=== PATIENT | male | born 1965 | race Caucasian/White ===

== ENCOUNTER 2018-04-25 07:35 | Day surgery (SDC) | payer OTHER ==
[~2018-04-25] VITALS: Ht 182.9 cm; Wt 72.8 kg
[2018-04-25] MEDS ORDERED: LOSA50TA7 PO (08:03)
[2018-04-25 08:32] LABS: BASOPHILS # (AUTO) 0.05 x10^3/uL (0-0.1); BASOPHILS % (AUTO) 0 % (0-1); EOSINOPHILS # (AUTO) 0.04 x10^3/uL (0-0.4); EOSINOPHILS % (AUTO) 0 % (1-7); LYMPHOCYTES % (AUTO) 11 % (22-44); MD NO; MEAN CORPUSCULAR HEMOGLOBIN 30.5 pg (27.5-34.5); MEAN CORPUSCULAR VOLUME 92.4 fL (81-97); MEAN PLATELET VOLUME 7.4 fL (7.4-10.4); MONOCYTES # (AUTO) 0.67 x10^3/uL (0.2-0.8); MONOCYTES % (AUTO) 5 % (2-9); NEUTROPHILS # (AUTO) 10.33 x10^3/uL (1.8-6.8); NEUTROPHILS % (AUTO) 83 % (42-75); PLATELET COUNT 363 x10^3/uL (130-400); RED BLOOD COUNT 5.59 x10^6/uL (4.38-5.82); RED CELL DISTRIBUTION WIDTH 13.6 % (9.4-14.8)
[2018-04-25 08:42] LABS: ALANINE AMINOTRANSFERASE 43 U/L (12-78); ALBUMIN 4.3 g/dL (3.4-5.0); ANION GAP 9 mmol/L (5-15); CALCIUM 9.7 mg/dL (8.5-10.1); CHLORIDE 98 mmol/L (98-107); CREATININE 1.18 mg/dL (0.7-1.3)
[2018-04-25 08:44] LABS: ALKALINE PHOSPHATASE 96 U/L (45-117); BILIRUBIN,TOTAL 2.2 mg/dL (0.2-1.0); TOTAL PROTEIN 9.6 g/dL (6.4-8.2)
[2018-04-25] MEDS ORDERED: OMNIPAQUE 350 MG/ML, 100ML BOTTLE ONE (09:10)
[2018-04-25] MEDS ORDERED: BUPIVACAINE/PF 0.5% ONE (10:30)
[2018-04-25] MEDS ORDERED: EPINEPHRINE 1 MG/ML, 1ML ONE (10:30)
[2018-04-25] MEDS ORDERED: CEFOTETAN PMX 1GM/50ML 50 ML IV ONE (10:30)
[2018-04-25] MEDS ORDERED: FENTANYL PF 100 MCG/2ML ONE ×4 (10:43→12:39)
[2018-04-25] MEDS ORDERED: MIDAZOLAM 1 MG/ML, 2ML ONE (10:43)
[2018-04-25] MEDS ORDERED: SUCCINYLCHOLINE 20 MG/ML, 10ML ONE (10:45)
[2018-04-25] MEDS ORDERED: SUGAMMADEX 200 MG/2 ML IVPush ONE (10:58)
[2018-04-25] MEDS ORDERED: CEFOTETAN 1 GM ONE (10:59)
[2018-04-25] MEDS ORDERED: ROCURONIUM 10MG/ML,5ML ONE (10:59)
[2018-04-25] MEDS ORDERED: PROPOFOL 10 MG/ML, 20ML ONE (10:59)
[2018-04-25] MEDS ORDERED: PHENYLEPHRINE 10 MG/ML ONE (10:59)
[2018-04-25] MEDS ORDERED: BUPIVACAINE/PF-EPI 0.5% 1:200K INFIL ONE (11:24)
[2018-04-25] MEDS ORDERED: LORazepam 2 MG/ML, 1ML IVPush PRN (11:30)
[2018-04-25] MEDS ORDERED: MEPERIDINE/PF 25MG/0.5ML IVPush PRN (11:30)
[2018-04-25] MEDS ORDERED: MORPHINE SULFATE 4 MG/ML, 1ML IVPush PRN (11:30)
[2018-04-25] MEDS ORDERED: DIAZEPAM 5 MG/ML, 2ML IVPush PRN (11:30)
[2018-04-25] MEDS ORDERED: ALBUTEROL SULFATE 2.5 MG/3 ML NPPB PRN (11:30)
[2018-04-25] MEDS ORDERED: LABETALOL 5MG/ML, 20ML IV PRN (11:30)
[2018-04-25] MEDS ORDERED: hydrALAzine 20 MG/ML, 1ML IV PRN (11:30)
[2018-04-25] MEDS ORDERED: METOCLOPRAMIDE 5 MG/ML, 2ML IV PRN (11:30)
[2018-04-25] MEDS ORDERED: ONDANSETRON 2MG/ML, 2ML ONE (12:02)
[2018-04-25] MEDS ORDERED: OXYcodone 5 MG/5 ML ORAL.SOL UDC ONE ×2 (12:39→13:19)
[2018-04-25] MEDS: FENTANYL PF 100 MCG/2ML IV PRN ×2 (12:41→12:48)
[2018-04-25] MEDS: OXYcodone 5 MG/5 ML ORAL.SOL UDC PO PRN ×2 (12:42→13:19)
[2018-04-25] MEDS ORDERED: HYDROmorphone 2 MG/ML, 1ML ONE (12:52)
[2018-04-25] MEDS: HYDROmorphone 2 MG/ML, 1ML IV PRN ×4 (12:54→13:26)
[2018-04-25] MEDS ORDERED: MEPERIDINE/PF 50 MG/ML ONE (13:35)
[2018-04-25] MEDS ORDERED: KETOROLAC 30 MG/1 ML ONE (13:41)
[2018-04-25] MEDS ORDERED: KETOROLAC 30 MG/1 ML IVPush ONE (14:00)
[2018-04-25 14:06] VITALS: BP 101/70
[2018-04-25 14:27] VITALS: BP 94/65
[2018-04-25] MEDS ORDERED: OXYC-302 PO (17:44)
[2018-04-25] MEDS ORDERED: POLY17PO5 PO (17:45)
== END 2018-04-25 17:45 | disposition home or self-care (01) ==
LOC: ED 09:02 → UNDOADMIN 10:29 → EDIP 10:29 → OR 10:29 → 4NOR 14:05 → EDIP 14:05 → OR 17:45 → UNDODISIN 18:00
PROVIDERS: ATTEND Colon & Rectal Surgery
DX: K80.12 Calculus of gallbladder with acute and chronic cholecystitis without obstruction (principal); I10 Essential (primary) hypertension; J45.909 Unspecified asthma, uncomplicated; Z98.890 Other specified postprocedural states; Z72.89 Other problems related to lifestyle
CPT/HCPCS: 36415; 47563; 71046; 74021; 74177; 74300; 80053; 83690; 85025; 88304; 93005; 99285; J0171; J0330; J1170; J1885; J2175; J2250; J2370; J2405; J2704; J3010; J3490; Q9967; G0378